=== PATIENT | female | born 1970 | race Caucasian/White ===

== ENCOUNTER 2017-02-23 21:07 | Emergency (ER) | payer MEDICAID, OTHER ==
[2017-02-23 21:44] VITALS: BP 116/74; PULSE 83; RESP 20; TEMP 97.9; O2SAT 97
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
== END 2017-02-23 23:43 | disposition home or self-care (01) ==
LOC: C.ER 21:07
DX: S13.9XXA Sprain of joints and ligaments of unspecified parts of neck, initial encounter (principal); V49.40XA Driver injured in collision with unspecified motor vehicles in traffic accident, initial encounter

== ENCOUNTER 2018-09-02 15:49 | Emergency (ER) | payer MEDICAID, OTHER ==
[2018-09-02 16:04] VITALS: BP 129/79; PULSE 75; TEMP 97.9; O2SAT 98
[2018-09-02 16:48] VITALS: RESP 18
--- NOTE | 2018-09-02 17:07 | C.PDOC ---
History Of Present Illness 48yo female, comes to ER reporting atraumatic left breast swelling x 3 days. She reports a US of breast 1 year ago, which was normal. She denies any redness, skin changes, or nipple discharge. She also denies changes in pain with movement. No other complaints. Time Seen by Provider: 09/02/18 16:07 Chief Complaint (Nursing): Cough, Cold, Congestion History Per: Patient History/Exam Limitations: no limitations Onset/Duration Of Symptoms: Days Current Symptoms Are (Timing): Still Present Past Medical History Reviewed: Historical Data, Nursing Documentation, Vital Signs Vital Signs: Last Vital Signs Temp 97.9 F 09/02/18 16:00 Pulse 75 09/02/18 16:00 Resp 18 09/02/18 16:46 BP 129/79 09/02/18 16:00 Pulse Ox 98 09/02/18 16:00 - Medical History PMH: Asthma Surgical History: No Surg Hx Family History: States: Unknown Family Hx - Social History Hx Alcohol Use: No Hx Substance Use: No - Immunization History Hx Tetanus Toxoid Vaccination: No Hx Influenza Vaccination: No Hx Pneumococcal Vaccination: No Review Of Systems Except As Marked, All Systems Reviewed And Found Negative. Skin: Positive for: Other (left breast swelling ) Physical Exam - Physical Exam Appears: Non-toxic, No Acute Distress Skin: Warm, Dry Head: Normacephalic Chest: Symmetrical, Other (breast exam negative; no erythema, no nipple discharge, no p'eau d'orange noted.) Cardiovascular: Rhythm Irregular Respiratory: Normal Breath Sounds Neurological/Psych: Oriented x3 ED Course And Treatment ECG: Interpreted By Me, Viewed By Me ECG Rhythm: Sinus Rhythm ECG Interpretation: Normal Rate From EC O2 Sat by Pulse Oximetry: 98 (RA) Pulse Ox Interpretation: Normal Medical Decision Making Medical Decision Making: Impression: Breast swelling Plan: -- EKG Patient informed to follow up with PMD in 2-3 days. Stable for discharge home. Disposition - Disposition Referrals: Jaron Smith, [Non-Staff] - Disposition: HOME/ ROUTINE Disposition Time: 17:40 Condition: GOOD Additional Instructions: ARCHIE NICHOLS, thank you for letting us take care of you today. The emergency medical care you received today was directed at your acute symptoms. If you were prescribed any medication, please fill it and take as directed. It may take several days for your symptoms to resolve. Return to the Emergency Department if your symptoms worsen, do not improve, or if you have any other problems. Please contact your doctor or call one of the physicians/clinics you have been referred to that are listed on the Patient Visit Information form that is included in your discharge packet. Bring any paperwork you were given at discharge with you along with any medications you are taking to your follow up visit. Our treatment cannot replace ongoing medical care by a primary care pr ovider outside of the emergency department. Thank you for allowing the [facility] team to be part of your care today. Follow up with your primary care doctor in 2-3 days for re-evaluation and further management. Prescriptions: Cephalexin [cephalexin] 500 mg PO TID #15 cap Ibuprofen [Motrin] 600 mg PO Q6 PRN #20 tab PRN Reason: Pain, Moderate (4-7) Instructions: Cellulitis (Skin Infection), Adult (DC) Forms: [employer] (Lao) - Clinical Impression Clinical Impression: Cellulitis - Scribe Statement The provider has reviewed the documentation as recorded by the Kaye Johnson Provider Attestation: All medical record entries made by the Kaye were at my direction and personally dictated by me. I have reviewed the chart and agree that the record accurately reflects my personal performance of the history, physical exam, medical decision making, and the department course for this patient. I have also personally directed, reviewed, and agree with the discharge instructions and disposition.
--- NOTE | 2018-09-07 07:35 | CARD ---
APPROVED REPORT Date of service: 09/02/2018 EKG Measurement Heart [id number] <Conclusion> Normal sinus rhythm Normal ECG
== END 2018-09-02 16:48 | disposition home or self-care (01) ==
LOC: C.ER 15:49
DX: N61.0 Mastitis without abscess (principal)